=== PATIENT | female | born 1950 | race Caucasian/White ===

== ENCOUNTER → 2017-03-26 | Outpatient (CLI) | payer MEDICARE, OTHER ==
[~2017-03-26] MED LIST: AMOX875T2 PO; ASP81CT PO; ASPI-999 PO; ATN50T PO; ATOR40TA; BNZ40T; BUDE6HFA IH; CHOL10002 PO; CYAN50003 PO; ETD400T; FAMO20TA5 PO; FRSM40T PO; GLBR5T; HCT25T PO; KCL10CCR; LEVO500T2 PO; LOVA10TA PO; LSRT50T; METF1000 PO; PGLT30T; PHEN200T27; PIOG45TA PO; POTA10CA43 PO; POTA10TA10 PO; PRV20T PO; SERT50TA; SIMV20TA3 PO; SULF-222; SULF1TAB38; hydrochlorot
--- NOTE | 2017-03-26 10:31 | Diagnostic Imaging Report ---
PROCEDURE: MR imaging of the brain without contrast. TECHNIQUE: Multiplanar, multisequence MR imaging of the brain was performed without contrast. INDICATION: Headache. FINDINGS: There is no diffusion restriction to suggest an acute infarct or other diffusion abnormality. The brain parenchyma demonstrates no significant signal abnormality and no brain edema or mass effect. No hydrocephalus. The brainstem and cerebellum have normal signal. There are normal central vascular flow-voids seen. The internal auditory canals and inner ear structures appear unremarkable. The pituitary gland is normal in size. No hypothalamic or pineal region mass. IMPRESSION: Unremarkable exam. Dictated by: Dictated on workstation # [id number]
== END ==
LOC: RAD 07:35
PROVIDERS: ATTEND Nurse Practitioner Family
DX: R51 Headache (principal)
CPT/HCPCS: 70551

== ENCOUNTER → 2017-09-03 | Outpatient (CLI) | payer MEDICARE, OTHER ==
--- NOTE | 2017-09-03 10:13 | Diagnostic Imaging Report ---
INDICATION: Screening for osteoporosis. FINDINGS: Bone mineral analysis of the lumbar spine and bilateral hips was performed. Bone mineral density of the lumbar spine from L2-L4 is 1.456 with a T score of 2.1. The bone mineral density of the left femoral neck is 0.873 with T score -1.2. Bone mineral density of the right femoral neck is 0.915 with a T score -0.9. IMPRESSION: Normal bone mineral density of the lumbar spine and right femoral neck. There is osteopenia of the left femoral neck. Dictated by: Dictated on workstation # [id number]
--- NOTE | 2017-09-03 19:14 | Diagnostic Imaging Report ---
INDICATION: Routine screening. The current study was also evaluated with a Computer Aided Detection (CAD) system. Comparison is made with prior studies from 10/02/2015 and 02/15/2013. FINDINGS: Both breasts are primarily involutional. The parenchymal pattern is stable. The nodular density in the upper-outer left breast appears stable. No new mass or malignant-appearing microcalcifications are seen. The axillae are unremarkable. IMPRESSION: No mammographic features suspicious for malignancy are identified. ACR BI-RADS Category 2: Benign findings. Result letter will be mailed to the patient. Note: At least 10% of breast cancer is not imaged by mammography. Dictated by: Dictated on workstation # [id number]
== END ==
LOC: RAD 08:32
PROVIDERS: ATTEND Nurse Practitioner Family
DX: Z12.31 Encounter for screening mammogram for malignant neoplasm of breast (principal); Z13.820 Encounter for screening for osteoporosis; M85.88 Other specified disorders of bone density and structure, other site
CPT/HCPCS: 77067; 77080

== ENCOUNTER 2017-09-21 05:41 | Outpatient (CLI) | payer MEDICARE, OTHER ==
[~2017-09-21] VITALS: Ht 162.6 cm; Wt 124.3 kg
[2017-09-21] MEDS ORDERED: ASPI-586 PO (12:55)
[2017-09-21] MEDS ORDERED: ATEN100T PO (12:55)
[2017-09-21] MEDS ORDERED: LOVA10TA PO (12:55)
[2017-09-21] MEDS ORDERED: DULA0.75 SQ (12:55)
[2017-09-21] MEDS ORDERED: HYDR25TA4 PO (12:55)
[2017-09-21] MEDS ORDERED: FURO40TA4 PO (12:55)
[2017-09-21] MEDS ORDERED: POTA10TA36 PO (12:55)
[2017-09-21] MEDS ORDERED: PIOG45TA18 PO (12:55)
== END 2017-09-21 12:57 ==
LOC: PREOP 05:41
PROVIDERS: ATTEND Surgery
DX: Z01.818 Encounter for other preprocedural examination (principal); Z12.11 Encounter for screening for malignant neoplasm of colon

== ENCOUNTER 2017-09-28 06:07 | Day surgery (SDC) | payer MEDICARE, OTHER ==
[~2017-09-28] VITALS: Ht 162.6 cm; Wt 124.3 kg
[~2017-09-28 06:07] MED LIST changes: +ASPI-586 PO; +ATEN100T PO; +DULA0.75 SQ; +FURO40TA4 PO; +HYDR25TA4 PO; +PIOG45TA18 PO; +POTA10TA36 PO
[2017-09-28] MEDS ORDERED: NS IV 500 ML 500 ML IV PRN (06:59)
[2017-09-28 07:14] VITALS: BP 180/76
[2017-09-28] MEDS ORDERED: MIDAZOLAM 2 MG/2 ML (VERSED) VIAL ONE ×3 (08:32)
[2017-09-28] MEDS ORDERED: fentaNYL INJECTION 100 MCG/2 ML AMP ONE (08:32)
--- NOTE | 2017-09-28 08:43 | History & Physicial ---
History of Present Illness History of Present Illness Reason for visit/HPI to undergo screening colonoscopy. No family history of colon cancer or polyps Date of Admission 09/28/17 Date Seen by Provider: Sep 28, 2017 Time Seen by Provider: 08:41 I consulted on this patient on 09/28/17 08:41 Attending Physician Zeenat Regan MD Admitting Physician Carson Lennon MD Consult Allergies and Home Medications Allergies Coded Allergies: NKANo Known Allergies (Verified Allergy, Unknown, 09/22/05) Home Medications Aspirin 81 Mg Tablet.dr, 81 MG PO DAILY, (Reported) Atenolol 100 Mg Tablet, 100 MG PO DAILY, (Reported) Dulaglutide 0.75 Mg/0.5 Ml Pen.injctr, 0.75 MG SQ WEEK, (Reported) Furosemide 40 Mg Tablet, 40 MG PO DAILY, (Reported) Hydrochlorothiazide 25 Mg Tablet, 25 MG PO DAILY, (Reported) Lovastatin 10 Mg Tablet, 10 MG PO DAILY, (Reported) Pioglitazone HCl 45 Mg Tablet, 45 MG PO DAILY, (Reported) Potassium Chloride 10 Meq Tab.er.prt, 10 MEQ PO BID, (Reported) Patient Home Medication List Home Medication List Reviewed: Yes Past Bojwrss-Setyea-Teekef Hx Patient Social History Marrital Status: Employed/Student: retired Alcohol Use: Denies Use Recreational Drug Use: No Smoking Status: Never a Smoker Recent Foreign Travel: No Contact w/other who traveled: No Recent Hopitalizations: No Recent Infectious Disease Expo: No Immunizations Up To Date Tetanus Booster (TDap): Unknown Date of Pneumonia Vaccine: Apr 05, 2014 Date of Influenza Vaccine: Apr 07, 2017 Seasonal Allergies Seasonal Allergies: Yes Surgeries Yes Gallbladder, Renal Respiratory No Currently Using CPAP: No Currently Using BIPAP: No Cardiovascular Yes High Cholesterol, Hypertension Neurological No Reproductive System [employer] History: Menopausal Genitourinary Yes Kidney Stones Gastrointestinal Yes Gastrointestinal Bleed, Hemorrhoids Musculoskeletal Yes Arthritis, Chronic Back Pain Endocrine History of Endocrine Disorders: Yes Endocrine Disorders: Diabetes, Non-Insulin dep HEENT Loss of Vision: Denies Hearing Impairment: Denies Cancer No Psychosocial History of Psychiatric Problem: No Family Medical History Family Hx: Asthma 19 FATHER Cardiovascular disease 19 FATHER G8 SISTER G8 SISTER Cervical cancer G8 SISTER G8 SISTER Completed stroke 19 MOTHER ( at 57 from CVA) Diabetes mellitus G8 BROTHER G8 SISTER G8 SISTER FH: breast cancer G8 SISTER FH: heart attack 19 FATHER ( at 71 from [place]) G8 BROTHER G8 SISTER Hypercholesterolemia G8 BROTHER G8 SISTER Hypertension G8 BROTHER G8 SISTER G8 SISTER Kidney stone G8 SISTER Constitutional: no symptoms reported EENTM: no symptoms reported Respiratory: no symptoms reported Cardiovascular: no symptoms reported Gastrointestinal: no symptoms reported Genitourinary: no symptoms reported Musculoskeletal: joint pain Skin: no symptoms reported Psychiatric/Neurological: No Symptoms Reported Physical Exam Vital Signs Vital Signs - First Documented 09/28/17 07:14 Temp 98.5 Pulse 62 Resp 18 B/P (MAP) 180/76 (110) Pulse Ox 96 O2 Delivery Room Air Capillary Refill : General Appearance: No Apparent Distress Neck: Normal Inspection Respiratory: Lungs Clear Cardiovascular: Regular Rate, Rhythm Gastrointestinal: Non Tender, Soft Rectal: Deferred Back: Normal Inspection Extremity: Normal Inspection Neurologic/Psychiatric: Alert, Oriented x3 Skin: Warm/Dry Assessment/Plan Assessment and Plan lady to undergo screening colonoscopy. Diverticulosis polyps etc. discussed in detail. Problems: Admission Diagnosis Admission Status: Other (Outpt Proc) ZEENAT REGAN MD Sep 28, 2017 8:43 am
--- NOTE | 2017-09-28 08:44 | Conscious Sedation/ASA ---
Conscious Sedation Pre-Proced Time Reviewed: 08:44 ASA Class: 2 Airway Mallampati Classification: ([place] appropriate class) I. II. III, IV Lungs Heart ASA score ASA 1: a normal healthy patient ASA 2: a patient with a mild systemic disease (mid diabetes, controlled hypertension, obesity ASA 3: a patient with a severe systemic disease that limits activity (angina , COPD, prior Myocardial infarction) ASA 4: a patient with an incapacitating disease that is a constant threat to life (CHF, renal failure) ASA 5: a moribund patient not expected to survive 24 hrs. (ruptured aneurysm) ASA 6: a declared brain patient whose organs are being harvested. For emergent operations, add the letter E after the classification Grade 2 Sedation Plan: Discussed options with patient/fam Note The patient is an appropriate candidate to undergo the planned procedure, sedation, and anesthesia. The patient immediately re-assessed prior to indication. ZEENAT WALKER MD Sep 28, 2017 8:44 am
[2017-09-28] MEDS: MIDAZOLAM 2 MG/2 ML (VERSED) VIAL IVP PRN ×2 (08:45→08:48)
[2017-09-28] MEDS: fentaNYL INJECTION 100 MCG/2 ML AMP IVP PRN ×2 (08:46→08:49)
[2017-09-28 09:15] VITALS: BP 147/64
--- NOTE | 2017-09-28 09:31 | Endo Procedure Record ---
Endo Procedure Report Date of Procedure Last Colonoscopy: Yes (unsure) Sep 28, 2017 Surgeon (s) ZEENAT WALKER MD Post Procedure/Op Diagnosis 1 mm polyp at the mid sigmoid colon 2 millimeter polyp at the distal transverse colon Moderate diverticulosis Procedure Performed Colonoscopy to cecum hot biopsy polypectomy 2 Description of Procedure Anesthesia Type: Conscious Sedation Specimen(s) collected/removed polyps from the sigmoid colon and the distal transverse colon Description of the Procedure Indication for the procedure: This lady came in for screening colonoscopy. She denied any family history of colon cancer or polyps. Informed consent was obtained after reviewing the procedure in detail. Description of the procedure: She was placed in left lateral decubitus position and her vital signs were monitored. Conscious sedation was achieved using Versed and fentanyl. Examination of the perianal area revealed skin tags and very minimal external hemorrhoids. Digital rectal examination was unremarkable. The colonoscope was then introduced in the rectum and advanced all the way up to cecum. It was then withdrawn slowly and the mucosa examined in a systematic fashion. Findings: 1. Sigmoid diverticulosis 2. 1 mm polyp at the mid sigmoid colon, that was excised with hot biopsy forceps 3. 2 mm polyp at the distal transverse colon that was managed in a similar fashion. She tolerated the procedure well and was taken back to the nursing area in a stable condition. Impression: Screening colonoscopy. Small polyps excised from the sigmoid and transverse colon. Recommend repeating in 3 years. Copies To: SEEMA PEREZ MD, XAVIER M MD Sep 28, 2017 9:31 am
--- NOTE | 2017-09-28 09:32 | Discharge Inst-Simple/Standard ---
Discharge Inst-Standard Discharge Medications New, Converted or Re-Newed RX: Other Patient Instructions/Follow Up Plan of Care/Instructions/FU: Repeat colonoscopy in 3 years Activity as Tolerated: Yes Discharge Diet: ADA Diet ZEENAT WALKER MD Sep 28, 2017 9:32 am
[2017-09-28 09:45] VITALS: BP 162/68
[2017-09-28 10:15] VITALS: BP 162/68
== END 2017-09-28 10:15 | disposition home or self-care (01) ==
LOC: ENDO 06:07
PROVIDERS: ATTEND Surgery
DX: Z12.11 Encounter for screening for malignant neoplasm of colon (principal); D12.5 Benign neoplasm of sigmoid colon; K63.5 Polyp of colon; K57.30 Diverticulosis of large intestine without perforation or abscess without bleeding; Z79.82 Long term (current) use of aspirin; E78.00 Pure hypercholesterolemia, unspecified; I10 Essential (primary) hypertension; E11.9 Type 2 diabetes mellitus without complications; Z79.899 Other long term (current) drug therapy

== ENCOUNTER → 2018-05-05 | Outpatient (CLI) | payer MEDICARE, OTHER ==
[~2018-05-05] MED LIST changes: +METF-399 PO; -METF1000 PO; -PIOG45TA18 PO; +PIOG45TA65 PO
--- NOTE | 2018-05-05 13:23 | Diagnostic Imaging Report ---
INDICATION: Left-sided abdominal pain. COMPARISON: 10/02/2015. FINDINGS: Two upright radiographic views of the abdomen were obtained and show nondistended loops of small bowel. There is no large collection of free intraperitoneal air. No abnormal air-fluid levels are seen. Two bulky extraosseous calcifications measuring approximately 7 and 16 mm are seen projecting over the inferior pole of the left kidney. Note is made left kidney resides more lateral and inferior than expected. Comparison is made to CT dated 10/02/2015. No other unexpected extraosseous calcifications or radiopaque foreign bodies are seen. No acute osseous abnormalities are identified. IMPRESSION: 1. Left-sided nephrolithiasis. 2. Nonobstructive small bowel gas pattern. Dictated by: Dictated on workstation # [id number]
== END ==
LOC: RAD 11:14
PROVIDERS: ATTEND Nurse Practitioner Family
DX: N20.0 Calculus of kidney (principal)
CPT/HCPCS: 74018

== ENCOUNTER → 2018-05-12 | Outpatient (CLI) | payer MEDICARE, OTHER ==
--- NOTE | 2018-05-12 15:22 | Diagnostic Imaging Report ---
PROCEDURE: CT abdomen and pelvis without contrast. TECHNIQUE: Multiple contiguous axial images were obtained through the abdomen and pelvis without the use of intravenous contrast. INDICATION: Left-sided flank pain and hematuria. COMPARISON: Comparison is made with prior CT from 10/02/2015. FINDINGS: The lung bases are clear. No focal liver mass is identified. Gallbladder appears to be surgically absent. No biliary ductal dilatation is seen. The pancreas and spleen are unremarkable. Low density nodule involving the left adrenal gland is stable and suggestive of an adenoma. The right adrenal gland is unremarkable. The right kidney is stable. Nonobstructing calculi in the lower pole of the left kidney are again noted. There is calculus also seen near the renal pelvis measuring 7 mm. No ureteral or bladder calculi are detected. Aorta is non-aneurysmal. There is a small fat-containing umbilical hernia. Bowel loops appear to be normal in caliber, without evidence of obstruction. There is moderate stool throughout the colon. The uterus is unremarkable. No definite abdominal or pelvic lymphadenopathy is seen. IMPRESSION: 1. Nonobstructing left renal calculi. There is also a 7 mm calculus in the region of the left renal pelvis. 2. No hydronephrosis is seen. 3. Moderate stool throughout the colon suggestive of constipation. 4. Small fat-containing umbilical hernia. Dictated by: Dictated on workstation # [id number]
== END ==
LOC: RAD 13:59
PROVIDERS: ATTEND Urology
DX: N20.0 Calculus of kidney (principal); K42.9 Umbilical hernia without obstruction or gangrene
CPT/HCPCS: 74176

== ENCOUNTER → 2018-06-07 | Outpatient (CLI) | payer MEDICARE, OTHER ==
[~2018-06-07] MED LIST changes: +FAMO20TA3 PO; +HYDR-3870 PO; +LOVA20TA2 PO; +METF-397 PO; +MIRA25TA PO; +NITR-68 PO; +TAMS0.4C98 PO
--- NOTE | 2018-06-07 15:24 | Diagnostic Imaging Report ---
INDICATION: Bilateral knee pain. Time of exam 11:23 a.m. FINDINGS: Both knees show fairly significant medial and patellofemoral compartmental degenerative change with joint space narrowing and marginal spurring. Milder lateral compartmental degenerative changes seen. No fracture, dislocation or effusion is seen. IMPRESSION: Degenerative changes bilaterally. No acute bony abnormality is detected. Dictated by: Dictated on workstation # [id number]
== END ==
LOC: RAD 10:49
PROVIDERS: ATTEND Nurse Practitioner Family
DX: M17.0 Bilateral primary osteoarthritis of knee (principal)

== ENCOUNTER 2018-06-08 05:38 | Outpatient (CLI) | payer MEDICARE, OTHER ==
[~2018-06-08] VITALS: Ht 162.6 cm; Wt 115.2 kg
[~2018-06-08 05:38] MED LIST changes: -FAMO20TA3 PO; -HYDR-3870 PO; -LOVA20TA2 PO; -METF-397 PO; -MIRA25TA PO; -NITR-68 PO; -TAMS0.4C98 PO
[2018-06-08] MEDS ORDERED: MIRA25TA PO (13:23)
[2018-06-08] MEDS ORDERED: LOVA20TA2 PO (13:23)
[2018-06-08] MEDS ORDERED: FAMO20TA3 PO (13:23)
[2018-06-08] MEDS ORDERED: METF-397 PO (13:23)
[2018-06-09] MEDS ORDERED: TAMS0.4C98 PO (09:30)
[2018-06-09] MEDS ORDERED: NITR-68 PO (09:30)
[2018-06-09] MEDS ORDERED: HYDR-3870 PO (09:30)
== END 2018-06-08 13:29 | disposition home or self-care (01) ==
LOC: PREOP 05:38
PROVIDERS: ATTEND Urology
DX: Z01.818 Encounter for other preprocedural examination (principal)

== ENCOUNTER 2018-06-09 05:53 | Day surgery (SDC) | payer MEDICARE, OTHER ==
[~2018-06-09] VITALS: Ht 162.6 cm; Wt 116.2 kg
[~2018-06-09 05:53] MED LIST changes: +FAMO20TA3 PO; +LOVA20TA2 PO; +METF-397 PO; +MIRA25TA PO
[2018-06-09 06:05] VITALS: BP 169/68
[2018-06-09] MEDS ORDERED: LACTATED RINGERS 1,000 ML IV PRN (06:09)
[2018-06-09] MEDS ORDERED: cefTRIAXone FOR IV USE 1,000 MG in NS (IVPB) 50 ML IV ONE (06:15)
[2018-06-09] MEDS ORDERED: proPOfol 200 MG/20 ML (DIPRIVAN) VIAL IV ONE (06:49)
[2018-06-09] MEDS ORDERED: fentaNYL INJECTION 100 MCG/2 ML AMP ONE (06:49)
[2018-06-09] MEDS ORDERED: MIDAZOLAM 2 MG/2 ML (VERSED) VIAL ONE (06:49)
[2018-06-09] MEDS ORDERED: ONDANSETRON 4 MG/2 ML (SDV) Z0FRAN ONE (06:49)
[2018-06-09] MEDS ORDERED: LIDOCAINE PF 2% 5 ML (XYLOCAINE) VIAL ONE (06:49)
[2018-06-09] MEDS ORDERED: SEVOFLURANE (ULTANE) 15 ML INHAL SOLN ONE ×2 (06:54→07:53)
--- NOTE | 2018-06-09 06:58 | Progress Note-Pre Operative ---
Pre-Operative Progress Note H&P Reviewed The H&P was reviewed, patient examined and no changes noted. Date Seen by Provider: Jun 09, 2018 Time Seen by Provider: 06:58 Date H&P Reviewed: Jun 09, 2018 Time H&P Reviewed: 06:58 Pre-Operative Diagnosis: LT RENAL STONE SMILEY WARD MD Jun 09, 2018 06:58
[2018-06-09] MEDS ORDERED: KETOROLAC 30 MG/ML VIAL ONE (07:06)
[2018-06-09] MEDS ORDERED: FUROSEMIDE 40 MG/4 ML INJ (LASIX) ONE (07:06)
--- NOTE | 2018-06-09 07:31 | Discharge Inst-Urology ---
Discharge Inst-Urology Discharge Medications New, Converted, or Re-newed RX: RX on Chart Patient Instructions/Follow Up Plan Please make appointment to been seen in office in 2 weeks. KUB prior to it KUB on way home Post ESWL instructions to patient Increase oral fluids for 48 hours and then as needed. Diet and Activity as tolerated. If questions or concerns contact your physician Or seek help at emergency department. SMILEY WARD MD Jun 09, 2018 07:31
--- NOTE | 2018-06-09 07:32 | Progress Note-Post Operative ---
Post-Operative Progess Note Surgeon (s)/Technical Proposal Writer (s) Surgeon SMILEY WARD MD Technical Proposal Writer: none Pre-Operative Diagnosis LT RENAL STONE Post-Operative Diagnosis same Procedure & Operative Findings Date of Procedure 06/09/18 Procedure Performed/Findings LT ESWL Anesthesia Type GENERAL Estimated Blood Loss Estimated blood loss (mL): NONE Specimens/Packing Specimens Removed NONE Packing: NONE SMILEY WARD MD Jun 09, 2018 07:32
--- NOTE | 2018-06-09 07:50 | OPERATIVE REPORT ---
DATE OF SERVICE: 06/09/2018 PREOPERATIVE DIAGNOSIS: Left renal stone. POSTOPERATIVE DIAGNOSIS: Left renal stone. OPERATION PERFORMED: Left ESWL. SURGEON: Thanh Ward MD ANESTHESIA: General. COMPLICATIONS: None. DESCRIPTION OF PROCEDURE: After satisfactory anesthesia, the patient in supine position on the ESWL table, the left renal stone was localized. Shocks were delivered at a kV of 4. Total of 2000 shocks completely fragmented the stone. The patient received 30 mg of Toradol and 40 mg of Lasix IV at the end of procedure. She tolerated the procedure and anesthesia well and was sent to recovery room in stable condition. Job ID: [id number] DocumentID: [id number] Dictated Date: 06/09/2018 07:43:06 Family And Marriage Counsellor Date: 06/09/2018 07:49:58 Dictated By: THANH WARD MD
[2018-06-09] MEDS ORDERED: ONDANSETRON 4 MG/2 ML (SDV) Z0FRAN IVP PRN (08:00)
[2018-06-09] MEDS ORDERED: morphine INJ 10 MG/ML 1ML (SYR OR VIAL) IVP ONE (08:00)
--- NOTE | 2018-06-09 08:32 | Diagnostic Imaging Report ---
PATIENT HISTORY: Preop/left renal stones. TECHNIQUE: Frontal view of the abdomen. COMPARISON: 05/05/2018. FINDINGS: There is moderate stool in the colon. No dilated loops of small bowel are seen. No large collection of free air is seen. There is a 9 mm calculus in the region of the left renal pelvis. There is a 1.7 cm calculus in the region of the lower pole of the left kidney. These appear similar to the CT from 05/12/2018. No calculi are seen in the region of the right kidney. Phleboliths are noted in the pelvis. IMPRESSION: 1. Left renal calculi, similar to the CT from 05/12/2018. 2. Moderate stool in the colon. Dictated by: Dictated on workstation # [id number]
[2018-06-09 09:00] VITALS: BP 147/55
[2018-06-09 09:30] VITALS: BP 169/75
[2018-06-09] MEDS ORDERED: NITR-68 PO (09:30)
[2018-06-09] MEDS ORDERED: TAMS0.4C98 PO (09:30)
[2018-06-09] MEDS ORDERED: HYDR-3870 PO (09:30)
[2018-06-09 10:00] VITALS: BP 187/82
[2018-06-09 10:10] VITALS: BP 187/82
--- NOTE | 2018-06-09 10:57 | Diagnostic Imaging Report ---
Indication: Status post lithotripsy. Time of exam: 10:01 AM Correlation is made with prior study earlier the same day. Bowel gas pattern does obscure both renal shadows. Calcific density overlying the left kidney is again seen similar to prior. No definite calculi along the course of the ureters is seen. Impression: Study is limited due to large amount of bowel gas overlying the renal shadows. Previously noted calcific density overlying the left renal shadow appears similar to earlier the same day. Dictated by: Dictated on workstation # [id number]
--- NOTE | 2018-06-09 13:38 | Anesthesia-General Post-Op ---
General Patient Condition Mental Status/LOC: Same as Preop Cardiovascular: Satisfactory Nausea/Vomiting: Absent Respiratory: Satisfactory Pain: Controlled Complications: Absent Post Op Complications Complications None Follow Up Care/Instructions Patient Instructions None needed. Anesthesia/Patient Condition Patient Condition Patient is doing well, no complaints, stable vital signs, no apparent adverse anesthesia problems. IRENA CALABRESE DO Jun 09, 2018 13:38
== END 2018-06-09 10:25 | disposition home or self-care (01) ==
LOC: SDC 05:53
PROVIDERS: ATTEND Urology
DX: N20.0 Calculus of kidney (principal); I10 Essential (primary) hypertension; E11.9 Type 2 diabetes mellitus without complications; E66.01 Morbid (severe) obesity due to excess calories; Z68.41 Body mass index [BMI] 40.0-44.9, adult; Z79.84 Long term (current) use of oral hypoglycemic drugs; Z79.899 Other long term (current) drug therapy
CPT/HCPCS: 74018; 82962; 87081

== ENCOUNTER → 2018-06-16 | Outpatient (CLI) | payer MEDICARE, OTHER ==
[~2018-06-16] MED LIST changes: +HYDR-3870 PO; +NITR-68 PO; +TAMS0.4C98 PO
--- NOTE | 2018-06-16 16:25 | Diagnostic Imaging Report ---
INDICATION: Left nephrolithiasis. KUB 3:52 PM. FINDINGS: There is a small calcification projecting over the left proximal ureter that could be a calculus. No obvious calculi seen projecting over the kidneys. IMPRESSION: Questionable calculus left ureteropelvic junction. Dictated by: Dictated on workstation # [id number]
== END ==
LOC: RAD 15:18
PROVIDERS: ATTEND Urology
DX: N20.0 Calculus of kidney (principal)
CPT/HCPCS: 74018

== ENCOUNTER → 2019-04-12 | Outpatient (CLI) | payer MEDICARE, OTHER | LOC: WOUNDCARE 09:17 | PROVIDERS: ATTEND Nurse Practitioner | DX: E11.621 Type 2 diabetes mellitus with foot ulcer (principal); L97.512 Non-pressure chronic ulcer of other part of right foot with fat layer exposed | CPT/HCPCS: 99214 ==

== ENCOUNTER → 2019-04-19 | Outpatient (CLI) | payer MEDICARE, OTHER | LOC: WOUNDCARE 09:34 | PROVIDERS: ATTEND Nurse Practitioner | DX: E11.621 Type 2 diabetes mellitus with foot ulcer (principal); E11.52 Type 2 diabetes mellitus with diabetic peripheral angiopathy with gangrene; L97.512 Non-pressure chronic ulcer of other part of right foot with fat layer exposed; I96 Gangrene, not elsewhere classified | CPT/HCPCS: 11042 ==

== ENCOUNTER → 2019-05-03 | Outpatient (CLI) | payer MEDICARE, OTHER | LOC: WOUNDCARE 09:48 | PROVIDERS: ATTEND Nurse Practitioner | DX: E11.621 Type 2 diabetes mellitus with foot ulcer (principal); L97.512 Non-pressure chronic ulcer of other part of right foot with fat layer exposed | CPT/HCPCS: 99212 ==

== ENCOUNTER → 2020-02-07 | Outpatient (CLI) | payer MEDICARE, OTHER ==
[~2020-02-07] MED LIST changes: -TAMS0.4C98 PO; +TMSL.4C PO
--- NOTE | 2020-02-07 12:37 | Diagnostic Imaging Report ---
INDICATION: Routine screening. Comparison is made with prior mammogram from 09/03/2017 and 10/02/2015. 2-D and 3-D bilateral screening mammography was performed with CAD. Scattered fibroglandular densities are identified bilaterally. There are benign parenchymal and vascular calcifications bilaterally. There is a nodular density in the upper outer left breast mid depth which appears stable. No new mass is seen. No malignant appearing microcalcifications are identified. IMPRESSION: BI-RADS Category 2 No mammographic features suspicious for malignancy are identified. ACR BI-RADS Category 2: Benign findings. Result letter will be mailed to the patient. Note: At least 10% of breast cancer is not imaged by mammography. Dictated by: Dictated on workstation # [id number]
== END ==
LOC: RAD 08:16
DX: Z12.31 Encounter for screening mammogram for malignant neoplasm of breast (principal)
CPT/HCPCS: 77063; 77067